=== PATIENT | male | born 1980 | race Caucasian/White ===

== ENCOUNTER → 2016-08-28 | Outpatient (CLI) | payer OTHER ==
--- NOTE | 2016-08-29 09:24 | XR ---
Lumbosacral spine HISTORY: Low back pain 5 views lumbosacral spine No comparisons There is no spondylolysis or spondylolisthesis. Loss of disc height present at L5-S1. There is multil evel spondylosis. Lumbar vertebral bodies show preserved height and bone mineralization. IMPRESSION: Degenerative disc disease
== END | disposition home or self-care (01) ==
LOC: RADXRYALE 16:48
PROVIDERS: ATTEND Physician Assistant Medical
DX: M51.36 Other intervertebral disc degeneration, lumbar region (principal)
CPT/HCPCS: 72110

== ENCOUNTER → 2018-03-28 | Outpatient (CLI) | payer BC ==
--- NOTE | 2018-03-29 09:05 | XR ---
EXAMINATION TYPE: XR abdomen 2V DATE OF EXAM: 03/28/2018 COMPARISON: NONE HISTORY: Pain TECHNIQUE: Two view abdominal series FINDINGS: The osseous structures are intact. The bowel gas pattern is nonspecific. Lung bases are clear. IMPRESSION: 1. Nonspecific abdomen. If symptoms persist consider CT scan.
== END | disposition home or self-care (01) ==
LOC: RADXRYALE 16:49
PROVIDERS: ATTEND Physician Assistant Medical
DX: R10.84 Generalized abdominal pain (principal)
CPT/HCPCS: 74019

== ENCOUNTER → 2018-03-29 | Outpatient (CLI) | payer BC ==
--- NOTE | 2018-03-29 12:14 | CT ---
EXAMINATION TYPE: CT abdomen pelvis w con DATE OF EXAM: 03/29/2018 COMPARISON: None INDICATION: Abdominal pain after eating x6 weeks DLP: 520.5 mGycm, Automated exposure control for dose reduction was used. CONTRAST: 100 mL of Isovue 300. Study performed with Oral Contrast TECHNIQUE: Axial images were obtained from above the diaphragm to the pubic rami in the axial plane a t 5 mm thick sections. Reconstructed images are reviewed on the computer in the coronal plane. FINDINGS: Limited CT sections are obtained the lung bases. The lung bases are clear. CT ABDOMEN: Liver: Normal Spleen: Normal Pancreas: Normal Adrenal glands: The adrenal glands are normal. Gallbladder: Normal Kidneys: No masses are evident. No hydronephrosis is present. No cysts are present. Delayed images were obtained through the kidneys, which remain unremarkable. Aorta: Vascular calcification is within the aorta. Inferior vena cava: Normal. CT PELVIS: Loops of bowel within the abdomen and pelvis are normal. There are loops of bowel which are incom pletely distended or lack oral contrast limiting their evaluation. Appendix: Normal as visualized. Urinary bladder: Normal. Genitourinary structures: Prostate is unremarkable. Osseous structures: No suspicious lytic or sclerotic lesions. IMPRESSIONS: 1. No suspicious abnormality to account for patient's abdominal pain.
== END ==
LOC: RADCTMAIN 09:58
PROVIDERS: ATTEND Physician Assistant Medical
DX: R10.30 Lower abdominal pain, unspecified (principal)
CPT/HCPCS: 74177; Q9967

== ENCOUNTER 2018-04-08 11:37 | Day surgery (SDC) | payer BC ==
[2018-04-04 10:43] VITALS: BMI 25.4
[~2018-04-08 11:37] MED LIST: LACTATED RINGERS 1,000 ML IV SCH
[2018-04-08 11:59] VITALS: TEMP 98.5
[2018-04-08] MEDS ORDERED: LIDOCAINE 1% 20 ML VIAL (10MG/ML) FOR IV START INTRADERMA ONE (12:08)
[2018-04-08] MEDS ORDERED: PROPOFOL 10 MG/ML 20 ML VIAL IV ONE (12:39)
[2018-04-08 13:54] VITALS: BP 110/71; PULSE 72; RESP 16
--- NOTE | 2018-04-08 14:51 | P.PCN ---
Date of Procedure: 04/08/18 Procedure(s) Performed: Procedure: Total colonoscopy. Preoperative diagnosis: Abdominal pain and family history of ulcerative colitis in his son. Postoperative diagnosis: Exam of the colon and terminal ileum within normal limits. Preparation: HalfLytely prep. Sedation: Was provided by anesthesia. Brief clinical history: The patient is a 57-year-old male who is scheduled for this evaluation because of unexplained lower abdominal pain that he had for the last 6 weeks or so. His son, age 14, has ulcerative colitis. The patient was recently started on anti-spasmodics and he has been responding to the treatment. This evaluation is to assess for inflammatory bowel disease or neoplasia. Procedure: With the patient on his left lateral decubitus position and after informed consent and adequate sedation, the perianal area was inspected and it did not show any fissures or fistulas. There were no masses felt on digital rectal examination. The Olympus CFH 190L video colonoscope was then inserted in the rectum in the usual fashion and advanced to the cecum. I intubated the ileocecal valve and examined the terminal ileum as well. Terminal ileum and colon appeared healthy with no edema, erythema, friability, ulceration, exudation or spontaneous bleeding. No polyps or tumors were seen or any obvious diverticular disease or other pathology. I retroflexed the endoscope in the rectum before the endoscope was withdrawn. The patient tolerated the procedure well. Plan: The patient was reassured. He will follow up with you as planned and I will be happy to see in the office if his symptoms recur.
== END 2018-04-08 14:10 | disposition home or self-care (01) ==
LOC: ORWHC2ENDO 11:37
DX: R10.30 Lower abdominal pain, unspecified (principal); Z79.899 Other long term (current) drug therapy; I10 Essential (primary) hypertension; F17.210 Nicotine dependence, cigarettes, uncomplicated; K58.9 Irritable bowel syndrome, unspecified; Z83.79 Family history of other diseases of the digestive system
CPT/HCPCS: 45378; J2704